=== PATIENT | female | born 1995 | race Caucasian/White ===

== ENCOUNTER 2017-01-28 08:46 | Emergency (ER) | payer OTHER ==
[~2017-01-28] VITALS: Ht 167.6 cm; Wt 56.7 kg
[2017-01-28] MEDS ORDERED: YASM3TAB2 PO (08:57)
[2017-01-28] MEDS ORDERED: diphenhydrAMINE INJ 50MG/ML VIAL (J1200) As Ordered ONE (09:13)
[2017-01-28] MEDS: KETOROLAC 30 MG/ML VIAL (J1885) IV ONE (09:16)
[2017-01-28] MEDS: ONDANSETRON 4MG/2ML VIAL (J2405) IV ONE (09:16)
[2017-01-28] MEDS: NS 1,000 ML IV ONE (09:17)
[2017-01-28] MEDS: diphenhydrAMINE INJ 50MG/ML VIAL (J1200) IV STA (09:17)
[2017-01-28 09:48] LABS: BASO # 0.1 K/mm3 (0.0-0.2); BASO % 1.3 % (0.0-1.0); EOS # 0.1 K/mm3 (0.0-0.50); EOS % 1.4 % (0.0-3.0); LARGE UNSTAINED CELL # 0.4 K/mm3 (0.0-0.4); LYMPH # 1.3 K/mm3 (1.5-6.5); LYMPH % 25.1 % (24.0-44.0); MEAN CORPUSCULAR HEMOGLOBIN 30.6 pg (27.0-33.0); MEAN CORPUSCULAR HGB CONC 34.2 g/dl (32.0-36.5); MEAN CORPUSCULAR VOLUME 89.4 fl (80.0-96.0); MONO # 0.4 K/mm3 (0.0-0.8); MONO % 6.9 % (0.0-5.0); NEUTROPHILS # 2.9 K/mm3 (1.8-7.7); NEUTROPHILS % 58.2 % (36.0-66.0); PLATELET COUNT, AUTOMATED 187 k/mm3 (150-450); RED CELL DISTRIBUTION WIDTH 11.9 % (11.5-14.5)
[2017-01-28 10:19] LABS: ANION GAP 10 MEQ/L (8-16); BLOOD UREA NITROGEN 10 MG/DL (7-18); CALCIUM LEVEL 8.9 MG/DL (8.5-10.1); CARBON DIOXIDE LEVEL 27 MEQ/L (21-32); CHLORIDE LEVEL 103 MEQ/L (98-107); CREATININE FOR GFR 0.88 MG/DL (0.55-1.02); GLUCOSE, FASTING 90 MG/DL (70-105); POTASSIUM SERUM 3.6 MEQ/L (3.5-5.1); SODIUM LEVEL 140 MEQ/L (136-145)
[2017-01-28] MEDS ORDERED: ISOVUE-370 76% 100ML VIAL (Q9967) As Ordered ONE (10:23)
[2017-01-28] MEDS ORDERED: NAPR500T PO (10:53)
[2017-01-28 11:01] VITALS: BP 109/95
--- NOTE | 2017-01-28 11:13 | REP ---
CT PULMONARY ANGIOGRAM: WITH IV CONTRAST. HISTORY: Question pulmonary embolism. COMPARISON STUDIES: No comparison study. CONTRAST DOSE: 75 mL of Isovue-[address] TECHNIQUE: Helical scanning is acquired and overlapping 1.5 mm and contiguous 3 mm axial images are reformatted. In addition, a 3D work station is deployed to generate thick slab maximum intensity projection images in sagittal and coronal imaging projections. CT PULMONARY ANGIOGRAPHIC FINDINGS: There is good opacification of the pulmonary arterial tree, and there is no CT evidence of pulmonary embolism. The thoracic aorta enhances homogeneously and is normal in course, caliber, and contour. No aneurysm or dissection is seen. A right arm venous injection of contrast was performed, and there are numerous collateral veins opacified about the right shoulder and right thoracic inlet. There is narrowing of the subclavian vein in the subclavicular region, question thoracic outlet or subclavian stenosis symptoms. This could conceivably be positional. Maximal intensity projection images show no evidence of vessel cutoff or filling defect in the pulmonary arterial tree. The lung cavanaugh are clear. No hilar or mediastinal mass or adenopathy is observed. No adrenal lesion is seen. Visualized upper abdominal structures are unremarkable. No bony destructive lesion is seen. IMPRESSION: 1. No CT evidence of pulmonary embolism. 2. Prominent venous collaterals in the shoulder and thoracic inlet soft tissues on the right associated with contrast injection in right arm vein. Narrowing of the subclavian vein as it passes under the right clavicle. This may be positional. No other abnormality. Signed by Riki Chahal MD 01/28/2017 06:18 P
--- NOTE | 2017-01-28 11:21 | ECGEPIP ---
Stationary ECG Study [facility] - ED Test Date: 2017-01-28 Pat Name: ANA MARIA RAMÍREZ Department: Room: - Gender: F Science Tutor: paco : 1995 Requested By: Lan Alfaro PA-C Order Number: [id number] Reading MD: Abel Santiago Measurements Intervals Doon Rate: 89 P: 48 ID: [id number] QRS: 1 QRSD: 93 T: -5 QT: 351 QTc: 429 Interpretive Statements SINUS RHYTHM NONSPECIFIC T WAVE ABNORMALITY NO PRIORS Electronically Signed On 01-28-2017 11:20:58 EDT by Abel Santiago
== END 2017-01-28 11:03 | disposition home or self-care (01) ==
LOC: M ED 09:49
DX: R07.89 Other chest pain (principal)
CPT/HCPCS: 71275; 80048; 81025; 82550; 82553; 85025; 85379; 93005; 96361; 96374; 96375; 99283; J1200; J1885; J2405; Q9967

== ENCOUNTER → 2017-04-16 | Outpatient (REF) | payer OTHER ==
[~2017-04-16] MED LIST: NAPR500T PO; YASM3TAB2 PO
== END ==
LOC: M SFHCLERA 19:44
PROVIDERS: ATTEND Physician Assistant
DX: N30.01 Acute cystitis with hematuria (principal)

== ENCOUNTER 2017-09-03 22:28 | Emergency (ER) | payer OTHER, SELFPAY ==
[~2017-09-03] VITALS: Ht 167.6 cm; Wt 54.0 kg
[2017-09-03 22:32] VITALS: BP 133/80
[2017-09-03] MEDS ORDERED: ZOLO25TA PO (22:36)
[2017-09-03] MEDS ORDERED: NUVAMIS2 VA (22:36)
== END 2017-09-03 23:11 | disposition left against medical advice (07) ==
LOC: M ED 22:28
DX: R11.0 Nausea (principal); Z53.29 Procedure and treatment not carried out because of patient's decision for other reasons

== ENCOUNTER 2017-12-09 07:20 | Day surgery (SDC) | payer OTHER ==
[2017-12-09] MEDS: LR 1,000 ML IV (07:30)
[2017-12-09 07:49] LABS: HEMATOCRIT 44.1 % (36.0-47.0); HEMOGLOBIN 14.7 g/dl (12.0-16.0); MEAN CORPUSCULAR HGB CONC 33.3 g/dl (32.0-36.5); PLATELET COUNT, AUTOMATED 266 10^3/uL (150-450); RED BLOOD COUNT 4.74 10^6/uL (4.00-5.40); RED CELL DISTRIBUTION WIDTH 12.1 % (11.5-14.5); WHITE BLOOD COUNT 4.2 10^3/uL (4.0-10.0)
[2017-12-09 08:08] LABS: CONTROL LINE HCG INT CTR LINE PRESENT; HCG, SERUM QUALITATIVE NEGATIVE (NEGATIVE)
[2017-12-09] MEDS ORDERED: fentaNYL 250 MCG/5 ML INJECTION (J3010) As Ordered (08:20)
[2017-12-09] MEDS ORDERED: PROPOFOL 200 MG/20 ML VIAL As Ordered (08:20)
[2017-12-09] MEDS ORDERED: ROCURONIUM BROMIDE 50 MG/5 ML VIAL As Ordered (08:20)
[2017-12-09] MEDS ORDERED: LIDOCAINE 2% INJ 100 MG/5 ML SYRINGE As Ordered (08:20)
[2017-12-09] MEDS ORDERED: MIDAZOLAM INJ 2 MG/2 ML VIAL (J2250) As Ordered (08:20)
[2017-12-09] MEDS ORDERED: dexameTHASONE 4 MG/ML 1ML VIAL (J1100) As Ordered (09:25)
[2017-12-09] MEDS ORDERED: PHENYLephrine HCL 500 MCG/5 ML (100MCG/ML) SYRINGE (J2370) As Ordered (09:28)
[2017-12-09] MEDS ORDERED: ONDANSETRON 4MG/2ML VIAL (J2405) As Ordered (09:39)
[2017-12-09] MEDS ORDERED: NEOSTIGMINE 10 MG/10 ML VIAL (J2710) As Ordered (09:39)
[2017-12-09] MEDS ORDERED: GLYCOPYRROLATE INJ 0.2 MG/ML 2 ML VIAL As Ordered ×2 (09:39)
[2017-12-09] MEDS ORDERED: ePHEDrine INJ 50 MG/ML VIAL As Ordered (09:53)
[2017-12-09] MEDS ORDERED: KETOROLAC 60 MG/2 ML VIAL (J1885) As Ordered (10:04)
[2017-12-09] MEDS: METHYLENE BLUE 0.5% (5MG/ML) 10 ML AMP (PROVAYBLUE)(Q9968 PER 1MG) As Ordered (10:13)
[2017-12-09] MEDS: BUPIVACAINE HCL 0.25% 10 ML VIAL As Ordered (10:13)
[2017-12-09] MEDS ORDERED: fentaNYL 100 MCG/2 ML INJECTION (J3010) As Ordered (10:59)
[2017-12-09] MEDS: fentaNYL 100 MCG/2 ML INJECTION (J3010) IV ×3 (11:00→11:05)
[2017-12-09] MEDS ORDERED: PERCOCET 5MG/325MG TAB As Ordered (11:08)
[2017-12-09] MEDS: PERCOCET 5MG/325MG TAB PO ×2 (11:15→12:12)
[2017-12-09] MEDS ORDERED: ONDANSETRON 4MG/2ML VIAL (J2405) IV (11:30)
[2017-12-09] MEDS ORDERED: HYDROmorphone HCL 1 MG/ML SYRINGE (J1170) IV (11:30)
[2017-12-09] MEDS ORDERED: LR 1,000 ML IV (11:30)
[2017-12-09] MEDS: ONDANSETRON 4MG/2ML VIAL (J2405) IV (11:45)
[2017-12-09] MEDS ORDERED: KETOROLAC 30 MG/ML VIAL (J1885) IV (16:00)
== END 2017-12-09 13:20 | disposition home or self-care (01) ==
LOC: M SDC 07:20
DX: N83.8 Other noninflammatory disorders of ovary, fallopian tube and broad ligament (principal); N80.0 Endometriosis of uterus; J45.909 Unspecified asthma, uncomplicated; Z79.899 Other long term (current) drug therapy
CPT/HCPCS: 58662